=== PATIENT | female | born 1975 | race African-American/Black ===

== ENCOUNTER 2021-02-22 17:02 | Emergency (ER) | payer BC ==
[~2021-02-22] VITALS: Ht 165.1 cm; Wt 113.4 kg
[2021-02-22 18:11] LABS: HEMOGLOBIN 10.5 gm/dL (12.0-15.0); MCH 23.8 pg (26.0-34.0); MCHC 31.7 g/dL (28.0-37.0); MCV 75.1 fL (80.0-100.0); RBC 4.4 mil/uL (4.20-5.00); RDW 14.9 % (10.5-14.5); WBC 6.9 thou/uL (4.0-11.0)
[2021-02-22 18:23] LABS: ANION GAP 9 mmol/L (7-16); BUN 16 mg/dL (7-18); CALCIUM 9.4 mg/dL (8.5-10.1); CHLORIDE 105 mmol/L (98-107); CO2 28 mmol/L (21-32); GLUCOSE 122 mg/dL (74-106); POTASSIUM 3.8 mmol/L (3.5-5.1); SODIUM 142 mmol/L (136-145)
[2021-02-22 18:33] LABS: ALBUMIN 3.8 g/dL (3.4-5.0); SGOT 22 U/L (15-37); SGPT 32 U/L (14-59); TOTAL BILIRUBIN 0.2 mg/dL (0.2-1.0); TOTAL PROTEIN 8.1 g/dL (6.4-8.2); TROPONIN-I <0.06 ng/mL (<0.06)
[2021-02-22] MEDS ORDERED: METHOCARBAMOL500 M2 PO (19:13)
[2021-02-22 19:41] VITALS: BP 137/84
--- NOTE | 2021-02-23 09:39 | EKG ---
[place] [address] [address] [facility] [place] [address] ELECTROCARDIOGRAM REPORT Name: ESSIE VARELA Room #: ELIEZER Chu#: [id number] Admission: 02/22/21 Attend Phys: Discharge: 02/22/21 Date of : 73 Report #: [id number] [facility] ED Test Date: 2021-02-22 Test Time: 17:08:38 Pat Name: ESSIE VARELA Department: Room: Gender: F State Auditor: ANT : 1975 Requested By: Stephan Jones Order Number: [id number] MD: Bernardino Huff Measurements Intervals [place] Rate: 71 P: 19 [place]: 163 QRS: 38 QRSD: 102 T: 9 QT: 428 QTc: 466 Interpretive Statements Sinus rhythm No significant abnormality No previous ECG available for comparison Electronically Signed On 02-23-2021 9:39:25 CDT by Bernardino Huff [email or web address] <ELECTRONICALLY SIGNED> By: Bernardino Huff MD, [facility] 02/23/21 0939 1708 1708 Bernardino Huff MD, FACC /EPI
== END 2021-02-22 19:47 | disposition home or self-care (01) ==
LOC: ER 17:02
PROVIDERS: Nurse Practitioner Family
DX: R07.89 Other chest pain (principal); R60.0 Localized edema; E78.00 Pure hypercholesterolemia, unspecified; Z20.822 Contact with and (suspected) exposure to COVID-19